=== PATIENT | female | born 1945 | race Caucasian/White ===

== ENCOUNTER → 2017-09-09 | Outpatient (CLI) | payer MEDICARE ==
[2017-09-09 13:58] VITALS: BP 135/61; PULSE 78; TEMP 97.8; BMI 24.9
--- NOTE | 2017-09-09 15:06 | P.HPOB ---
History of Present Illness H&P Date: 09/09/17 Chief Complaint: Patient is here for her routine gynecologic exam and mammogram. This is a 72-year-old G3 PIII with an LMP of 1994. The patient denies any postmenopausal bleeding. The patient has been experiencing abdominal bloating and slight distention over the past year. She is otherwise without gynecologic complaints. Review of Systems Patient is gained about 3 pounds over the last year. She denies respiratory, cardiac and G.I. problems. She denies maltreatment or problems with falling. : she has experienced occasional leakage especially with coughing and sneezing. She is not interested in any surgical correction at this time. Past Medical History Past Medical History: Asthma (Not requiring medication.), Hyperlipidemia, Hypertension, Musculoskeletal Disorder (Arthritis and chronic back problems.) Additional Past Medical History / Comment(s): History of rosacea. Past Surgical History: Cholecystectomy, Joint Replacement (Right hip replaced in 2011.) Additional Past Surgical History / Comment(s): Multiple colonoscopies in the past in the most recent was in 2017. Smoking Status: Never smoker Past Alcohol Use History: None Reported Past Drug Use History: None Reported Additional History: She has been since 1963 and is retired. Medications and Allergies Home Medications Medication Instructions Recorded Confirmed Type Biotin 10,000 mcg PO DAILY 09/05/17 09/09/17 History Calcium Carbonate [Calcium] 600 mg PO 09/05/17 History Lisinopril [Zestril] 5 mg PO DAILY 09/05/17 09/09/17 History Nitrofurantoin Monohyd/M-Cryst 100 mg PO Q12HR 09/05/17 09/09/17 History [Macrobid] Simvastatin [Zocor] 20 mg PO DAILY 09/05/17 09/09/17 History Cholecalciferol (Vitamin D3) 2,000 unit PO DAILY 09/09/17 09/09/17 History [Vitamin D3] Cyanocobalamin (Vitamin B-12) 2,000 mcg PO DAILY 09/09/17 09/09/17 History [Vitamin B-12] Doxycycline [Vibramycin] 50 mg PO Q12HR 09/09/17 09/09/17 History Glucosam/Alan-Msm1/C/Anjel/Bosw 1 each PO 09/09/17 History [Glucosamine-Chondroitin Tablet] Clark-3 Fatty Acids [Clark-3] 1,000 mg PO DAILY 09/09/17 09/09/17 History Exam - Vital Signs Vital signs: Vital Signs Temp Pulse BP 09/09/17 13:48 97.8 F 78 135/61 Intake and Output 09/08/17 09/09/17 09/09/17 22:59 06:59 14:59 Other: Weight 74.389 kg Height 5'8", BMI 25. This is a well-developed well-nourished white female who is alert and oriented times 3 in no acute distress. HEENT: Within normal limits. NECK: Supple without mass or thyromegaly. CHEST AND LUNGS: Clear to auscultation. HEART: Regular rate and rhythm. BREASTS: Are without mass or discharge. AXILLARY EXAM: Negative for adenopathy. BACK: Negative for CVA tenderness. ABDOMEN: Soft, nontender, without palpable masses. PELVIC EXAM: Normal external genitalia with mild atrophy. Cervix and vagina appear normal with mild atrophy. There is no unusual discharge. There is no evidence of prolapse at rest. With cough and Valsalva there is mild urethral mobility without urinary leakage demonstrated. The uterus is midposition, nongravid size and nontender. There are no palpable adnexal masses or tenderness. RECTAL EXAM: recto vaginal exam is negative for mass or tenderness and is negative for occult blood. EXTREMITIES: Nontender. IMPRESSION: 1. 72-year-old menopausal female with normal gynecologic exam. 2. Mild stress urinary incontinence without significant cystocele. The patient is declining surgical intervention at this time. 3. Subjective sensation of chronic abdominal bloating without any significant physical findings at this time. PLAN: 1. Pap smear was deferred since she had one done less than 2 years ago which was normal. 2. Self breast examination was discussed. 3. Screening mammogram will be done today. 4. Pelvic ultrasound will be scheduled to evaluate the abdominal bloating. 5. Patient did receive a flu shot this past fall. 6. Kegel exercises were recommended. She will call if she is having worsening symptoms. 7. She will return in one year.
--- NOTE | 2017-09-11 07:06 | MM ---
Reason for exam: screening (asymptomatic). Last mammogram was performed 1 year and 3 months ago. History: Patient is postmenopausal. Benign cyst aspiration of the right breast. Took estrogen for 10 years. Took progesterone for 10 years. Physical Findings: A clinical breast exam by your physician is recommended on an annual basis and results should be correlated with mammographic findings. MG 3D Screening Mammo W/Cad Bilateral CC and MLO view(s) were taken. Prior study comparison: June 11, 2016, bilateral MG 3d screening mammo w/cad. May 09, 2015, bilateral MG 3d screening mammo w/cad. The breast tissue is heterogeneously dense. This may lower the sensitivity of mammography. No suspicious abnormality. No significant changes when compared with prior studies. ASSESSMENT: Negative, BI-RAD 1 RECOMMENDATION: Routine screening mammogram of both breasts in 1 year.
== END | disposition home or self-care (01) ==
LOC: WWCWWP 13:42
PROVIDERS: ATTEND Obstetrics & Gynecology
DX: Z12.31 Encounter for screening mammogram for malignant neoplasm of breast (principal)
CPT/HCPCS: 77063; 77067

== ENCOUNTER → 2017-09-10 | Outpatient (CLI) | payer MEDICARE ==
--- NOTE | 2017-09-11 07:21 | US ---
EXAMINATION TYPE: US pelvis complete transvag DATE OF EXAM: 09/10/2017 COMPARISON: NONE CLINICAL HISTORY: R14.0 ABD BLOATING. TECHNIQUE: Transvaginal (TV) and Transabdominal (TA) . Transabdominal sonographic images of the pel vis were acquired. Transvaginal sonographic images were medically necessary to better assess the fol lowing anatomy: uterus and ovaries. Date of LMP: 1994 EXAM MEASUREMENTS: Uterus: 6.1 x 3.0 x 4.5 cm Endometrial Stripe: 0.3 cm Right Ovary: not identified on today's exam cm Left Ovary: not identified on today's exam cm 1. Uterus: Anteverted wnl 2. Endometrium: wnl 3. Right Ovary: not identified on today's exam 4. Left Ovary: not identified on today's exam 5. Bilateral Adnexa: wnl 6. Posterior cul-de-sac: no free fluid IMPRESSION: 1. No distinct abnormality seen. Ovaries not clearly visualized. No adnexal masses.
== END | disposition home or self-care (01) ==
LOC: RADUSWWP 16:13
PROVIDERS: ATTEND Obstetrics & Gynecology
DX: R14.0 Abdominal distension (gaseous) (principal)
CPT/HCPCS: 76830; 76856

== ENCOUNTER → 2019-02-16 | Outpatient (CLI) | payer MEDICARE ==
[2019-02-16 09:41] VITALS: BP 145/81; PULSE 85; RESP 18; TEMP 97.6; BMI 23.8
--- NOTE | 2019-02-16 10:33 | P.HPOB ---
History of Present Illness H&P Date: 02/16/19 Chief Complaint: The patient is here for her routine gynecologic exam and ma mmogram. This is a 73-year-old G3 PIII with an LMP of 1994. The patient denies any postmenopausal bleeding. The patient states she has having more urinary leakage. She states it can occur with coughing and sneezing. She also has some urge incontinence and can leak if she does not get to the bathroom right away. Review of Systems She has lost 7 pounds over the last year. She denies respiratory, cardiac and G.I. problems. She denies maltreatment or problems with falling. : urinary leakage as per the HPI. Past Medical History Past Medical History: Asthma, Hyperlipidemia, Hypertension, Musculoskeletal Disorder Additional Past Medical History / Comment(s): History of rosacea. 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 History of Any Multi-Drug Resistant Organisms: None Reported Past Surgical History: Cholecystectomy, Joint Replacement Additional Past Surgical History / Comment(s): Right hip replaced in 2011. Multiple colonoscopies in the past in the most recent was in 2017. Smoking Status: Never smoker Past Alcohol Use History: None Reported Past Drug Use History: None Reported Additional History: She has been since 1963 and is infrequently sexual active. She is retired. - Past Family History Mother Family Medical History: Cancer Additional Family Medical History / Comment(s): Colon cancer. Medications and Allergies Home Medications Medication Instructions Recorded Confirmed Type Biotin 10,000 mcg PO DAILY 09/05/17 02/16/19 History Calcium Carbonate [Calcium] 600 mg PO DAILY 09/05/17 02/16/19 History Nitrofurantoin Monohyd/M-Cryst 100 mg PO Q12HR 09/05/17 02/16/19 History [Macrobid] Simvastatin [Zocor] 20 mg PO DAILY 09/05/17 02/16/19 History Cholecalciferol (Vitamin D3) 2,000 unit PO DAILY 09/09/17 02/16/19 History [Vitamin D3] Cyanocobalamin (Vitamin B-12) 6,000 mcg PO DAILY 09/09/17 02/16/19 History [Vitamin B-12] Doxycycline [Vibramycin] 50 mg PO Q12HR 09/09/17 02/16/19 History [place]-3 Fatty Acids [[place]-3] 1,000 mg PO DAILY 09/09/17 02/16/19 History Bacillus Coagulans/Inulin 1 each PO DAILY 02/16/19 02/16/19 History [Probiotic with Prebiotic Cap] Multivitamin [Multivitamins Adult 1 each PO DAILY 02/16/19 02/16/19 History Gummies] Allergies Allergy/AdvReac Type Severity Reaction Status Date / Time Penicillins Allergy Rash/Hives Unverified 02/16/19 09:42 Sulfa (Sulfonamide Allergy Rash/Hives Unverified 02/16/19 09:42 Antibiotics) Exam Vital Signs Temp Pulse Resp BP Pulse Ox 02/16/19 09:35 97.6 F 85 18 145/81 96 Intake and Output 02/15/19 02/16/19 02/16/19 22:59 06:59 14:59 Other: Weight 71.214 kg Height 5'8", weight 157 pounds, BMI 23.9. This is a well-developed well-nourished white female who is alert and oriented times 3 in no acute distress. HEENT: Within normal limits. NECK: Supple without mass or thyromegaly. CHEST AND LUNGS: Clear to auscultation. HEART: Regular rate and rhythm. BREASTS: Are without mass or discharge. AXILLARY EXAM: Negative for adenopathy. BACK: Negative for CVA tenderness. ABDOMEN: Soft, nontender, without palpable masses. PELVIC EXAM: Normal external genitalia with mild atrophy. Cervix and vagina appear normal is mild atrophy. There is no unusual discharge. There is no evidence of prolapse. With cough and Valsalva there is mild urethral mobility with no urinary leakage demonstrated. The uterus is midposition, nongravid size and nontender. There are no palpable adnexal masses or tenderness. RECTAL EXAM: rectovaginal exam is negative for mass or tenderness and is negative for occult blood. EXTREMITIES: Nontender. IMPRESSION: 1. 73-year-old menopausal female with normal gynecologic exam. 2. Mixed urinary incontinence with mild urethral mobility. PLAN: 1. Pap smear was performed. If this is normal, consider discontinuing Pap smears since we will have documented adequate cervical screening with 3 negative Pap smears in the last 10 years. She has no history of cervical problems. 2. Self breast awareness was discussed with the patient. 3. Screening mammogram will be done today. 4. Osteoporosis prevention was discussed. I have stressed the importance of adequate calcium, vitamin D and regular exercise. Recommended amounts of calcium and vitamin D were also discussed. screening in 1 to 2 years since her she had a normal bone density test on 05/12/2015. 5. She does receive flu shots and fall. 6. I've recommended referral to a gynecologic urologist such as Dr. Shoemaker. She will think about this and let me know when she would like to have a referral for her urinary incontinence. 7. The patient was advised to return in 1-2 years for her well woman examination.
--- NOTE | 2019-02-18 10:02 | MM ---
Reason for exam: screening (asymptomatic). Last mammogram was performed 1 year and 5 months ago. History: Patient is postmenopausal. Benign cyst aspiration of the right breast. Took estrogen for 10 years. Took progesterone for 10 years. Physical Findings: A clinical breast exam by your physician is recommended on an annual basis and results should be correlated with mammographic findings. MG 3D Screening Mammo W/Cad Bilateral CC and MLO view(s) were taken. Prior study comparison: September 09, 2017, bilateral MG 3d screening mammo w/cad. June 11, 2016, bilateral MG 3d screening mammo w/cad. There are scattered fibroglandular densities. No significant changes when compared with prior studies. ASSESSMENT: Negative, BI-RAD 1 RECOMMENDATION: Routine screening mammogram of both breasts in 1 year.
== END | disposition home or self-care (01) ==
LOC: WWCWWP 09:26
PROVIDERS: ATTEND Obstetrics & Gynecology
DX: Z12.31 Encounter for screening mammogram for malignant neoplasm of breast (principal)
CPT/HCPCS: 77063; 77067

== ENCOUNTER → 2020-04-04 | Outpatient (CLI) | payer MEDICARE ==
[2020-04-04 12:53] VITALS: BP 126/72; PULSE 61; RESP 18; TEMP 97.9
--- NOTE | 2020-04-04 13:42 | P.HPOB ---
History of Present Illness H&P Date: 04/04/20 Chief Complaint: The patient is here for her routine gynecologic exam and ma mmogram. This is a 75-year-old with an LMP of 1994. The patient is without gynecologic complaints and denies any postmenopausal bleeding. She has had fairly frequent urinary tract infections this past year and with urine testing was told there was microscopic hematuria. She has an appointment with her urologist, Dr. Grant, for this in 2 days. Review of Systems She has gained about 7 pounds over the past year. She denies respiratory or cardiac problems. GI: She has been having some upper abdominal pains with some food and has an appointment with a GI specialist. She denies maltreatment or problems with falling. : She continues to have some urinary leakage and this is not new. Past Medical History Past Medical History: Asthma, Hyperlipidemia, Hypertension, Musculoskeletal Disorder Additional Past Medical History / Comment(s): History of rosacea. 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 History of Any Multi-Drug Resistant Organisms: None Reported Past Surgical History: Cholecystectomy, Joint Replacement Additional Past Surgical History / Comment(s): Right hip replaced in 2011. Multiple colonoscopies in the past in the most recent was in 2017. Smoking Status: Never smoker Past Alcohol Use History: None Reported Past Drug Use History: None Reported Additional History: She has been since 1963. Her has had some complications related to his diabetes and he has required a [id number] amputation. She is retired. - Past Family History Mother Family Medical History: Cancer Additional Family Medical History / Comment(s): Colon cancer. Medications and Allergies Home Medications Medication Instructions Recorded Confirmed Type Biotin 10,000 mcg PO DAILY 09/05/17 04/04/20 History Calcium Carbonate [Calcium] 600 mg PO DAILY 09/05/17 04/04/20 History Nitrofurantoin Monohyd/M-Cryst 100 mg PO Q12HR 09/05/17 04/04/20 History [Macrobid] Simvastatin [Zocor] 20 mg PO DAILY 09/05/17 04/04/20 History Cholecalciferol (Vitamin D3) 2,000 unit PO DAILY 09/09/17 04/04/20 History [Vitamin D3] Cyanocobalamin (Vitamin B-12) 6,000 mcg PO DAILY 09/09/17 04/04/20 History [Vitamin B-12] R[place]-3 Fatty Acids [Rye-3] 1,000 mg PO DAILY 09/09/17 04/04/20 History Multivitamin [Multivitamins Adult 1 each PO DAILY 02/16/19 04/04/20 History Gummies] Col-Rite 1 tab PO BID 04/04/20 04/04/20 History Pantoprazole [Protonix] 40 mg PO DAILY 04/04/20 04/04/20 History Allergies Allergy/AdvReac Type Severity Reaction Status Date / Time Penicillins Allergy Rash/Hives Unverified 04/04/20 12:53 Sulfa (Sulfonamide Allergy Rash/Hives Unverified 04/04/20 12:53 Antibiotics) Exam Vital Signs Temp Pulse Resp BP Pulse Ox 04/04/20 12:47 97.9 F 61 18 126/72 96 Intake and Output 04/03/20 04/04/20 04/04/20 22:59 06:59 14:59 Other: Weight 74.389 kg Height 5 feet 7-1/2 inches, weight 164 pounds, BMI 25.3. This is a well-developed well-nourished white female who is alert and oriented times 3 in no acute distress. HEENT: Within normal limits. NECK: Supple without mass or thyromegaly. CHEST AND LUNGS: Clear to auscultation. HEART: Regular rate and rhythm. BREASTS: Are without mass or discharge. AXILLARY EXAM: Negative for adenopathy. BACK: Negative for CVA tenderness. ABDOMEN: Soft, nontender, without palpable masses. PELVIC EXAM: Normal external genitalia with mild to moderate atrophy. Cervix and vagina appear normal with mild to moderate atrophy. There is no unusual discharge. There is no evidence of prolapse. The uterus is midposition, nongravid size and nontender. There are no palpable adnexal masses or tenderness. RECTAL EXAM: Rectovaginal exam is negative for mass or tenderness and is negative for occult blood. EXTREMITIES: Nontender. IMPRESSION: 1. 75-year-old menopausal female with normal gynecologic exam. 2. History of chronic mixed urinary incontinence. 3. Recent history of frequent urinary tract infections and microscopic hematuria. PLAN: 1. Pap smears have been discontinued. 2. Self breast awareness was discussed with the patient. 3. Screening mammogram will be done today. 4. She has an appointment with her urologist in 2 days for the microscopic hematuria and for urinary tract infections. She will let me know if she wants referral to a UNIFORMS SALES REPRESENTATIVE urologist for her urinary incontinence. 5. Osteoporosis prevention was discussed. I have stressed the importance of adequate calcium, vitamin D and regular exercise. Recommended amounts of calcium and vitamin D were also discussed. Bone density test was normal in 2014. I have recommended repeating the bone density testing. She would like to do this in 1 year. 6. The patient was advised to return in 1-2 years for her well woman examination.
--- NOTE | 2020-04-05 11:33 | MM ---
Reason for exam: screening (asymptomatic). Last mammogram was performed 1 year and 2 months ago. History: Patient is postmenopausal. Benign cyst aspiration of the right breast. Took estrogen for 10 years. Took progesterone for 10 years. Physical Findings: A clinical breast exam by your physician is recommended on an annual basis and results should be correlated with mammographic findings. MG 3D Screening Mammo W/Cad Bilateral CC and MLO view(s) were taken. Prior study comparison: February 16, 2019, bilateral MG 3d screening mammo w/cad. September 09, 2017, bilateral MG 3d screening mammo w/cad. The breast tissue is heterogeneously dense. This may lower the sensitivity of mammography. There is no discrete abnormality. No significant changes when compared with prior studies. ASSESSMENT: Negative, BI-RAD 1 RECOMMENDATION: Routine screening mammogram of both breasts in 1 year.
== END | disposition home or self-care (01) ==
LOC: WWCWWP 12:38
PROVIDERS: ATTEND Obstetrics & Gynecology
DX: Z12.31 Encounter for screening mammogram for malignant neoplasm of breast (principal)
CPT/HCPCS: 77063; 77067

== ENCOUNTER 2020-05-26 08:30 | Day surgery (SDC) | payer MEDICARE ==
[2020-04-25 15:19] VITALS: BMI 24.7
[~2020-05-26 08:30] MED LIST: LACTATED RINGERS 1,000 ML IV SCH; LIDOCAINE 1% (10MG/ML) FOR IV START INTRADERMA PRN
[2020-05-26 09:05] VITALS: RESP 16; TEMP 97.2
[2020-05-26] MEDS: LACTATED RINGERS 1,000 ML IV SCH ×2 (09:10→09:37)
[2020-05-26] MEDS ORDERED: PROPOFOL 10 MG/ML 20 ML VIAL IV ONE (09:39)
--- NOTE | 2020-05-26 09:49 | P.PCN ---
Date of Procedure: 05/26/20 Procedure(s) Performed: BRIEF HISTORY: Patient is a 75-year-old, pleasant, revealed scheduled for an upper endoscopy for evaluation of long-standing history of epigastric pain and GERD. She been on Protonix 40 mg daily for the last 6 months PROCEDURE PERFORMED: Esophagogastroduodenoscopy with biopsy. PREOPERATIVE DIAGNOSIS: Chronic epigastric pain and heartburn IV sedation per anesthesia. PROCEDURE: After informed consent was obtained, the patient was brought into the endoscopy unit. IV sedation was administered by Anesthesia under continuous monitoring. Initially the Olympus GIF-140 video endoscope was inserted into the mouth. Esophagus intubated without any difficulty. It was gradually advanced into the stomach and duodenum and carefully examined. The bulb and the second part of the duodenum appeared normal. The scope at this time was withdrawn to the stomach, adequately insufflated with air, and upon careful examination, mucosa of the antrum had mild gastritis and biopsies were done from this area. The, body, cardia and the fundus appeared normal. The scope was then withdrawn into the esophagus. The GE junction was located at 39 cm from the incisors. The esophagus appeared normal. There were no erosions or ulcerations seen, biopsies were done from the distal esophageal and the patient tolerated the procedure well. IMPRESSION: 1. Mild antral gastritis. 2. Normal-appearing esophagus with no evidence of esophagitis or Page's esophagus. RECOMMENDATIONS: The findings of this examination were discussed with the patient as well as a family. She was advised to follow with the biopsy result. She was advised to continue with Protonix 40 mg daily and follow antireflux measures..
[2020-05-26 10:36] VITALS: BP 139/70; PULSE 74
== END 2020-05-26 10:34 | disposition home or self-care (01) ==
LOC: ORWHC2ENDO 08:30
PROVIDERS: ATTEND Internal Medicine Gastroenterology
DX: K29.50 Unspecified chronic gastritis without bleeding (principal); I10 Essential (primary) hypertension; E78.5 Hyperlipidemia, unspecified; Z87.09 Personal history of other diseases of the respiratory system; M19.90 Unspecified osteoarthritis, unspecified site; K21.9 Gastro-esophageal reflux disease without esophagitis; N39.0 Urinary tract infection, site not specified; Z79.899 Other long term (current) drug therapy; Z88.0 Allergy status to penicillin; Z88.2 Allergy status to sulfonamides
CPT/HCPCS: 88305; 43239; J2704

== ENCOUNTER → 2022-03-26 | Outpatient (CLI) | payer MEDICARE ==
[2022-03-26 12:50] VITALS: BP 132/71; PULSE 69; RESP 17; TEMP 98.3
--- NOTE | 2022-03-26 13:38 | P.HPOB ---
History of Present Illness H&P Date: 03/26/22 Chief Complaint: The patient is here for her routine gynecologic exam and ma mmogram. This is a 77-year-old with an LMP of 1994. The patient is without gynecologic complaints. She continues to have some issues with urinary leakage. She can notice urinary leakage with walking, standing, coughing, and sneezing. He states the leakage is immediate. She knows she may be a candidate for surgical correction for her incontinence, however, she states she is too busy at this time since she does spend much time caring for her . Review of Systems The patient's weight has been stable over the last year. She denies respiratory, cardiac, or G.I. problems. : Urinary leakage as in the HPI. Past Medical History Past Medical History: Asthma, GERD/Reflux, Hyperlipidemia, Hypertension, Osteoarthritis (OA), Skin Disorder Additional Past Medical History / Comment(s): rosacea. Mixed urinary incontinence. 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 History of Any Multi-Drug Resistant Organisms: None Reported, ESBL Date of last positivie culture/infection: 06/09/20 ESBL E.coli MDRO Source:: Urine Past Surgical History: Cholecystectomy, Joint Replacement, Tonsillectomy Additional Past Surgical History / Comment(s): Right hip replacement, sydnee cataracts. Last colonoscopy 2016. Past Anesthesia/Blood Transfusion Reactions: No Reported Reaction Past Psychological History: No Psychological Hx Reported Smoking Status: Never smoker Past Alcohol Use History: None Reported Past Drug Use History: None Reported Additional History: She has been since 1963. Her has complications related to his diabetes which did require a below the knee amputation. She is retired. - Past Family History Mother Family Medical History: Cancer Additional Family Medical History / Comment(s): Colon cancer. Medications and Allergies Home Medications Medication Instructions Recorded Confirmed Type Biotin [Biotin Disolve] 10,000 mcg PO DAILY 09/05/17 03/26/22 History Nitrofurantoin Monohyd/M-Cryst 100 mg PO Q12HR PRN 09/05/17 03/26/22 History [Macrobid] Simvastatin [Zocor] 20 mg PO HS 09/05/17 03/26/22 History Cholecalciferol (Vitamin D3) 50 mcg PO DAILY 09/09/17 03/26/22 History [Vitamin D3] [place]-3 Fatty Acids [[place]-3] 690 mg PO BID 09/09/17 03/26/22 History Multivitamin [Multivitamins Adult 1 each PO DAILY 02/16/19 03/26/22 History Gummies] Col-Rite 1 tab PO BID 04/04/20 03/26/22 History Ascorbic Acid [Vitamin C] 500 mg PO DAILY 04/25/20 03/26/22 History Cyanocobalamin (Vitamin B-12) 2,500 mcg PO DAILY 04/25/20 03/26/22 History [Vitamin B-12] Allergies Allergy/AdvReac Type Severity Reaction Status Date / Time Penicillins Allergy Rash/Hives Unverified 03/26/22 12:41 Sulfa (Sulfonamide Allergy Rash/Hives Unverified 03/26/22 12:41 Antibiotics) Exam Vital Signs Temp Pulse Resp BP Pulse Ox 03/26/22 12:48 98.3 F 69 17 132/71 99 Intake and Output 03/25/22 03/26/22 03/26/22 22:59 06:59 14:59 Other: Weight 73.482 kg Height 5 feet 8 inches, weight 162 pounds, BMI 24.6. This is a well-developed well-nourished white female who is alert and oriented times 3 in no acute distress. HEENT: Within normal limits. NECK: Supple without mass or thyromegaly. CHEST AND LUNGS: Clear to auscultation. HEART: Regular rate and rhythm. BREASTS: Are without mass or discharge. AXILLARY EXAM: Negative for adenopathy. BACK: Negative for CVA tenderness. ABDOMEN: Soft, nontender, without palpable masses. PELVIC EXAM: Normal external genitalia with mild to moderate atrophy. Cervix and vagina appear normal with mild to moderate atrophy. There is no unusual discharge. There is no evidence of prolapse at rest. With cough and Valsalva there is mild urethral mobility. No urinary leakage was demonstrated. The uterus is midposition, nongravid size and nontender. There are no palpable adnexal masses or tenderness. RECTAL EXAM: Rectovaginal exam is negative for mass or tenderness and is negative for occult blood. EXTREMITIES: Nontender. IMPRESSION: 1. 77-year-old menopausal female with normal gynecologic exam. 2. History of chronic mixed urinary incontinence with urethral mobility, but no significant cystocele. PLAN: 1. Pap smears have been discontinued. 2. Self breast awareness was discussed with the patient. We have also discussed symptoms associated with inflammatory breast cancer. 3. Screening mammogram will be done today. 4. Osteoporosis prevention was discussed. I have stressed the importance of adequate calcium, vitamin D and regular exercise. Recommended amounts of calcium and vitamin D were also discussed. Her last bone density test was norm al in 2014. I have recommended repeating the bone density test. The order slip will be mailed to the patient. 5. We have had a long discussion regarding her urinary incontinence. I have recommended regular [place] exercises. We also have discussed a possible referral to a uro-thumb sewer. She will let me know if she wants to proceed with this referral. 6. She has completed her Covid vaccination series and did receive one booster. I have recommended that she look into having another booster. 7. She is due for a colonoscopy. She will discuss this with her PCP. 8. She was advised to return in one year for her annual well woman exam.
--- NOTE | 2022-03-27 07:57 | MM ---
Reason for Exam: Screening (asymptomatic). Last mammogram was performed 2 year(s) and 0 month(s) ago. Patient History: Menarche at age 14. First Full-Term at age 22. Postmenopausal. Patient used Estrogen for 10 years. Patient used Progesterone for 10 years. Benign Cyst Aspiration on the right side. Risk Values: Tamara 5 year model risk: 1.4%. NCI Lifetime model risk: 2.3%. Prior Study Comparison: 09/09/2017 Bilateral Screening Mammogram, [facility]. 02/16/2019 Bilateral Screening Mammogram, [facility]. 04/04/2020 Bilateral Screening Mammogram, [facility]. Tissue Density: There are scattered fibroglandular densities. Findings: Analyzed By CAD. There is no suspicious group of microcalcifications or new suspicious mass in either breast. Overall Assessment: Negative, BI-RAD 1 Management: Screening Mammogram of both breasts in 1 year. A clinical breast exam by your physician is recommended on an annual basis and results should be correlated with mammographic findings. [facility] will attempt to contact patient to return for supplemental views and ultrasound if indicated. Electronically signed and approved by: Rory Velasquez DO
== END ==
LOC: WWCWWP 12:24
PROVIDERS: ATTEND Obstetrics & Gynecology
DX: Z12.31 Encounter for screening mammogram for malignant neoplasm of breast (principal); J45.909 Unspecified asthma, uncomplicated; K21.9 Gastro-esophageal reflux disease without esophagitis; E78.5 Hyperlipidemia, unspecified; I10 Essential (primary) hypertension; M19.90 Unspecified osteoarthritis, unspecified site; N39.46 Mixed incontinence; Z88.0 Allergy status to penicillin; Z88.2 Allergy status to sulfonamides
CPT/HCPCS: 77063; 77067

== ENCOUNTER → 2024-05-22 | Outpatient (CLI) | payer MEDICARE ==
--- NOTE | 2024-05-22 13:57 | MR ---
EXAMINATION TYPE: MR lumbar spine wo con DATE OF EXAM: 05/22/2024 11:22 AM COMPARISON: 02/03/2012. CLINICAL INDICATION: Female, 79 years old with history of M51.36 OTHER INVERTEBRAL DISC GENERATION; P HH, Low back pain TECHNIQUE: Multi planar, multi sequence imaging was performed utilizing: T1-weighted, T2-weighted, a nd turbo inversion recovery imaging of the lumbar spine. IV Contrast: mL (None, if empty) FINDINGS: Alignment: The lumbar vertebral bodies have preserved heights and alignment. Cord: The conus medullaris and the distal spinal cord appear unremarkable with regards to their signa l intensity and morphology. Bones/Discs: Mild degeneration changes throughout the spine with osteophyte formation and facet joint arthropathy. Intervertebral disc signal is maintained. Reactive adjoining endplate edema at L2-L3 T12-L1: No evidence of significant spinal canal stenosis or neural foraminal stenosis. L1-L2: No evidence of significant spinal canal stenosis or neural foraminal stenosis. L2-L3: Disc bulge and facet joint arthropathy result in mild spinal canal and mild bilateral neural f oraminal stenosis. L3-L4: Disc bulge and facet joint arthropathy result in mild spinal canal and moderate right and mild left bilateral neural foraminal stenosis. L4-L5: Disc bulge and facet joint arthropathy result in mild spinal canal and mild bilateral neural f oraminal stenosis. L5-S1: The disc has a rounded posterior morphology without significant spinal canal stenosis. Facet j oint arthropathy with moderate to severe bilateral neural foraminal stenosis. No significant spinal canal or neural foraminal stenosis in the remainder of the visualized levels. Other findings: High T2 signal simple appearing renal cortical cysts and peripelvic cysts. IMPRESSION: 1. No definitive evidence of disc herniation or significant spinal canal stenosis. 2. Moderate disc degeneration with associated osteoarthritic changes. Degeneration worse with reacti ve edema at L2-L3 adjoining endplates. [facility], , 05/22/2024 1:55 PM
== END | disposition home or self-care (01) ==
LOC: RADMRIMAIN 10:02
PROVIDERS: ATTEND Psychiatry & Neurology Neurology
DX: M51.360 Other intervertebral disc degeneration, lumbar region with discogenic back pain only (principal); M47.816 Spondylosis without myelopathy or radiculopathy, lumbar region
CPT/HCPCS: 72148

== ENCOUNTER → 2024-10-07 | Outpatient (CLI) | payer MEDICARE ==
[2024-10-07 16:01] LABS: Basophils % (A) 1.3 %; Eosinophils # (A) 0.11 X 10*3/uL (0.04-0.35); Eosinophils % (A) 1.4 %; HCT 46.9 % (37.2-46.3); HGB 14.8 g/dL (12.0-15.0); Lymphocytes # (A) 1.63 X 10*3/uL (0.90-5.00); Lymphocytes % (A) 21.5 %; MCH 30.6 pg (27.0-32.0); MCHC 31.6 g/dL (32.0-37.0); MCV 97.1 FL (80.0-97.0); Mean Platelet Volume 12.2 FL (9.5-12.2); Monocytes # (A) 0.69 X 10*3/uL (0.20-1.00); Monocytes % (A) 9.1 %; NRBC Per 100 WBC 0 X 10*3/uL (0.00-0.01); Neutrophils # (A) 5.03 X 10*3/uL (1.80-7.70); Neutrophils % (A) 66.3 %; Platelet Count 235 X 10*3/uL (140-440); RBC 4.83 X 10*6/uL (4.10-5.20); RDW 13.5 % (11.5-14.5); WBC 7.59 X 10*3/uL (4.50-10.00)
[2024-10-07 19:17] LABS: ALT 30 U/L (8-44); AST 25 U/L (13-35); Albumin 4.4 g/dL (3.8-4.9); Albumin/Globulin Ratio 1.91 Ratio (1.60-3.17); Alkaline Phosphatase 81 U/L (41-126); Blood Urea Nitrogen 22.5 mg/dL (9.0-27.0); Calcium 9.7 mg/dL (8.7-10.3); Carbon Dioxide 26.1 mmol/L (21.6-31.8); Chloride 106 mmol/L (96-109); Globulin 2.3 g/dL (1.6-3.3); Glucose 94 mg/dL (70-110); Potassium 4.6 mmol/L (3.5-5.5); Sodium 144 mmol/L (135-145); T4, Free (Free Thyroxine) 1.03 ng/dL (0.80-1.80); Total Bilirubin 0.4 mg/dL (0.3-1.2); Total Protein 6.7 g/dL (6.2-8.2)
== END | disposition home or self-care (01) ==
LOC: LABWHC1 11:14
PROVIDERS: ATTEND Student in an Organized Health Care Education/Training Program
DX: R20.2 Paresthesia of skin (principal)
CPT/HCPCS: 36415; 80053; 82306; 82607; 83036; 84439; 84443; 85025